=== PATIENT | male | born 1975 | race Caucasian/White ===

== ENCOUNTER 2018-12-02 07:38 | Day surgery (SDC) | payer OTHER ==
[2018-12-02] MEDS ORDERED: PROPOFOL 40 ML (10:20)
== END 2018-12-02 13:36 | disposition home or self-care (01) ==
LOC: GIL 07:38
DX: R19.5 Other fecal abnormalities (principal); D12.5 Benign neoplasm of sigmoid colon; K64.8 Other hemorrhoids; E03.9 Hypothyroidism, unspecified
CPT/HCPCS: 45380; 88305